=== PATIENT | female | born 1990 | race Caucasian/White ===

== ENCOUNTER 2016-11-24 11:41 | Emergency (ER) | payer SELFPAY ==
[~2016-11-24] VITALS: Ht 154.9 cm; Wt 60.0 kg
[2016-11-24 12:07] VITALS: Ht 154.9 cm; Wt 60.0 kg
== END 2016-11-24 13:17 | disposition left against medical advice (07) ==
LOC: FTE 11:41
DX: Z53.21 Procedure and treatment not carried out due to patient leaving prior to being seen by health care provider (principal)

== ENCOUNTER 2018-10-25 09:14 | Inpatient (IN) | payer OTHER ==
[~2018-10-25] VITALS: Ht 154.9 cm; Wt 69.6 kg
[~2018-10-25 09:14] MED LIST: PREN-93 PO
[2018-10-25 09:27] VITALS: Ht 154.9 cm; Wt 69.6 kg
[2018-10-25] MEDS ORDERED: MINERAL OIL LIGHT 10 ML VIAL TOP ONE (09:30)
[2018-10-25] MEDS ORDERED: OXYTOCIN 30 UNITS/LR 500 ML IV SCH ×3 (09:30)
[2018-10-25] MEDS ORDERED: BUTORPHANOL 2 MG INJ IV PRN (09:30)
[2018-10-25] MEDS ORDERED: METHYLERGONOVINE 0.2 MG INJ IM PRN (09:30)
[2018-10-25] MEDS ORDERED: IBUPROFEN 600 MG TAB PO PRN (09:30)
[2018-10-25] MEDS ORDERED: MISOPROSTOL 200 MCG TAB PR PRN (09:30)
[2018-10-25] MEDS ORDERED: LIDOCAINE 1% (MPF) 30 ML INJ INJ PRN (09:30)
[2018-10-25] MEDS ORDERED: MISOPROSTOL 50 MCG CAPSULE PO SCH (09:30)
[2018-10-25] MEDS ORDERED: OXYTOCIN 30 UNITS/LR 500 ML IV PRN (09:30)
[2018-10-25] MEDS ORDERED: CARBOPROST 250 MCG INJ IM PRN (09:30)
[2018-10-25] MEDS: LACTATED RINGER'S 1,000 ML IV SCH ×2 (10:11→17:30)
[2018-10-25] MEDS ORDERED: FER325 PO (10:18)
--- NOTE | 2018-10-25 19:49 | PREAC ---
Date/Time of Note Date/Time of Note DATE: 10/25/18 TIME: 19:48 Anesthesia Eval and Record Evaluation Time Pre-Procedure Interview DATE: 10/25/18 TIME: 19:48 Age 28 Sex female NPO: Other (na) Preoperative diagnosis labor pain Planned procedure epidural Past Medical History Past Medical History: None Surgery & Anesthesia Issues No known issue Meds Anticoagulation: No Beta Tammie within 24 hr: No Reason Beta Tammie not given: Pt. not on B-Tammie Reported Medications Ferrous Sulfate* (Ferrous Sulfate*) 325 Mg Tabec, 325 MG PO DAILY, TAB 10/25/18 Vit No.124/Iron/FA ( Vitamin Tablet) 1 Each Tablet, 1 EACH PO, TAB 10/17/18 Current Medications Lactated Ringer's 1,000 ml @ 125 mls/hr Q8H IV Last administered on 10/25/18at 17:30; Admin Dose 125 MLS/HR; Start 10/25/18 at 09:22 Butorphanol Tartrate (Stadol) 2 mg Q2H PRN IV .PAIN; Start 10/25/18 at 09:30 Lidocaine (Xylocaine 1% (Mpf)) 30 ml ONCE PRN INJ .EPISIOTOMY; Start 10/25/18 at 09:30 Oxytocin/Lactated Ringer's 500 ml @ 500 mls/hr ONCE POST IV ; Start 10/25/18 at 09:30 Oxytocin/Lactated Ringer's 500 ml @ 125 mls/hr POST IV ; Start 10/25/18 at 09:30 Ibuprofen (Motrin) 600 mg ONCE PRN PO .PAIN 1-5; Start 10/25/18 at 09:30 Oxytocin/Lactated Ringer's 500 ml @ 0 mls/hr ONCE PRN IV .VAGINAL BLEEDING; Start 10/25/18 at 09:30 Methylergonovine Maleate (Methergine) 0.2 mg ONCE PRN IM .VAGINAL BLEEDING; Start 10/25/18 at 09:30 Carboprost Tromethamine (Hemabate) 250 mcg ONCE PRN IM .VAGINAL BLEEDING; Start 10/25/18 at 09:30 Misoprostol (Cytotec) 1,000 mcg ONCE PRN VT .VAGINAL BLEEDING; Start 10/25/18 at 09:30 Misoprostol (Cytotec 50 Mcg Capsule) 50 mcg ONCE PO ; Start 10/25/18 at 09:30; Stop 10/25/18 at 23:59 Oxytocin/Lactated Ringer's 500 ml @ 0 mls/hr FOR INDUCTION IV Last administered on 10/25/18at 12:50; Admin Dose 1 MLS/HR; Start 10/25/18 at 09:30 Meds reviewed: Yes Allergies Coded Allergies: No Known Allergy (Unverified , 10/17/18) Allergies Reviewed: Yes Labs/Studies Labs Reviewed: Reviewed by anesthesiologist Result Diagram: 10/25/18 1007 Laboratory Tests 10/25/18 10:07 Blood Bank Test 10/25/18 10:07 Antibody Screen NEGATIVE Blood Type O POSITIVE Rh Immune Globulin Candidate NO test: N/A Pre-procedure Exam Airway: Adequate mouth opening, Adequate thyromental dist Mallampati: Mallampati III Teeth: Normal Lung: Normal Heart: Normal ASA Physical Status ASA physical status: 2 Emergency: None Pre-operative Attestations Prior to commencing anesthesia and surgery, the patient was re-evaluated, there was verification of: *The patient's identity *The results of appropriate recent lab work and preoperative vital signs *The above evaluation not changing prior to induction *Anesthetic plan, risk benefits, alternative and complications discussed with patient/family; questions answered; patient/family understands, accepts and wishes to proceed. ROSSY GARCIA DO Oct 25, 2018 19:48
[2018-10-25] MEDS ORDERED: FENTAnyl 2MCG/ML-ROPIV 0.2% 100 ML ONE (19:50)
[2018-10-25] MEDS ORDERED: FENTAnyl 2MCG/ML-ROPIV 0.2% 100 ML BAG EPI SCH (20:00)
[2018-10-25] MEDS ORDERED: NALOXONE (0.4 MG/ML) INJ IV PRN (20:00)
--- NOTE | 2018-10-25 20:31 | PAC ---
Date/Time of Note Date/Time of Note DATE: 10/25/18 TIME: 20:31 Post-Anesthesia Notes Post-Anesthesia Note Last documented vital signs wnl Activity: WNL Respiratory function: WNL Cardiovascular function: WNL Mental status: Baseline Pain reasonably controlled: Yes Hydration appropriate: Yes Nausea/Vomiting absent: Yes ROSSY GARCIA DO Oct 25, 2018 20:31
[2018-10-26] MEDS: LACTATED RINGER'S 1,000 ML IV SCH (02:38)
--- NOTE | 2018-10-26 03:36 | PREOPHP ---
DATE OF ADMISSION: 10/25/2018 HISTORY OF PRESENT ILLNESS: Ms. Halie Connell is a 28-year-old 2, para 1, EDC 10/20/2018 intrauterine at 40 weeks and 5 days gestational age, admitted for post-EDC induction. She denies any vaginal bleeding or discharge; however, she does report of contractions since early this morning. Her care took place at [facility]. PAST MEDICAL HISTORY: None. MEDICATIONS: vitamins. PAST SURGICAL HISTORY: None. OBSTETRICAL HISTORY: Vaginal delivery x1. GYNECOLOGIC HISTORY: Twelve, regular 3 to 4 days. Denies any sexually transmitted. Sexually active with 1 partner. SOCIAL HISTORY: Denies any smoking, drugs or alcohol. FAMILY HISTORY: None. REVIEW OF SYSTEMS: All within normal except history of present illness. PHYSICAL EXAMINATION: HEENT: Within normal. LUNGS: CTA bilateral. CARDIOVASCULAR: S1, S2, regular rhythm. ABDOMEN: Gravid, nontender. Negative CVA bilateral. EXTREMITIES: No calf tenderness. PELVIC: Vaginal exam 2 to 3 cm dilated, 70% effaced, -2 station. heart tracing category 1. T ocometer regular contractions. ASSESSMENT: Intrauterine at 40 weeks and 5 days gestational age, admitted for post-EDC aug mentation. PLAN: Pitocin as needed, pain management. Anticipate vaginal delivery. Dictated By: CHAPINCITO RODRIGES/JOSEFA Conf#: [id number] DID#: [id number]
[2018-10-26] MEDS ORDERED: MINERAL OIL LIGHT 10 ML VIAL TOP ONE (04:00)
[2018-10-26] MEDS ORDERED: OXYTOCIN 30 UNITS/LR 500 ML IV SCH (04:44)
--- NOTE | 2018-10-26 04:44 | LDN ---
Date/Time of Note Date/Time of Note DATE: 10/26/18 TIME: 04:43 Delivery Summary Weeks of Gestation 40 Placenta Delivered: Spontaneously Meconium: none Episiotomy: No Perineal laceration: 1 Laceration repair: 1st degree perineal laceration repair with 2-0 and 3-0 chromic Anesthesia type: Epidural Estimated blood loss: 150 Sponge & Needle done & correct: Yes All needle counts correct: Yes Any foreign bodies felt in the: No Infant Delivery Information Sex Sex: male Apgars 1 Minute: 9 5 Minute: 9 Suctioning Nose & mouth suctioned at christine: No Delee suction performed: No Umbilical Cord Umbilical cord with: 3 Vessels Cord presentations: no nuchal cord Cord Blood was obtained: Yes CHAPINCITO WILSON MD Oct 26, 2018 04:44
[2018-10-26] MEDS ORDERED: WITCH HAZEL/GLYCERIN PAD PR PRN (05:00)
[2018-10-26] MEDS ORDERED: CARBOPROST 250 MCG INJ IM PRN (05:00)
[2018-10-26] MEDS ORDERED: LANOLIN HPA 1 PKT TOP PRN (05:00)
[2018-10-26] MEDS ORDERED: BENZOCAINE 20% 56 ML SPRAY TOP PRN (05:00)
[2018-10-26] MEDS ORDERED: OXYTOCIN 30 UNITS/LR 500 ML IV PRN (05:00)
[2018-10-26] MEDS ORDERED: ONDANSETRON 4 MG INJ IV PRN (05:00)
[2018-10-26] MEDS ORDERED: NACL 0.9% 3 ML SYG IV SCH (05:00)
[2018-10-26] MEDS ORDERED: MAGNESIUM HYDROXIDE 30ML CUP PO PRN (05:00)
[2018-10-26] MEDS ORDERED: OXYCODONE/ASPIRIN (4.88/325) TAB PO PRN ×2 (05:00)
[2018-10-26] MEDS ORDERED: METHYLERGONOVINE 0.2 MG INJ IM PRN (05:00)
[2018-10-26] MEDS ORDERED: MISOPROSTOL 200 MCG TAB PR PRN (05:00)
[2018-10-26 06:50] VITALS: BP 119/75; PULSE 61; RESP 18
[2018-10-26] MEDS: IBUPROFEN 600 MG TAB PO SCH ×3 (07:07→17:11)
[2018-10-26 07:30] VITALS: BP 122/76; PULSE 65; RESP 18
[2018-10-26] MEDS: SENNA/DOCUSATE NA (8.6MG/50MG) TAB PO SCH ×2 (10:12→21:49)
[2018-10-26 16:00] VITALS: BP 101/65; PULSE 69; RESP 19
[2018-10-27] VITALS: BP 110/70; PULSE 68; RESP 18
[2018-10-27 04:00] VITALS: BP 121/79; PULSE 61; RESP 18
[2018-10-27] MEDS: IBUPROFEN 600 MG TAB PO SCH ×4 (06:53→17:49)
[2018-10-27 08:00] VITALS: BP 107/76; PULSE 64; RESP 18
[2018-10-27] MEDS: SENNA/DOCUSATE NA (8.6MG/50MG) TAB PO SCH ×2 (09:20→21:00)
[2018-10-27 16:30] VITALS: BP 109/75; PULSE 67; RESP 18
--- NOTE | 2018-10-27 17:07 | PD.PPDC ---
PRIVATE DUTY RN Discharge Instruction Condition [id number] Patient Condition: [id number] Fair Diet [id number] Diet: Mikak1d Resume Regular Diet Activity/Restrictions [id number] Activity: Nxoic6s Normal Activity May Shower Reawa1Se Restrictions: [id number] No Exercising No Lifting No Driving No Sexual Activity Nothing in the Vagina No [place] No Tampons, douche Follow-up Follow-up with Physician: 3, Week/Weeks Return to clinic for [id number] [facility] [employer] [facility] Instructions: [id number] Fever greater than 101 Chills Worsening abdominal pain Excessive Vaginal Bleeding More than 2 pads per hour Unable to tolerate diet [id number] OB Instructions: Cshfa4l Breast Tenderness Depression Blurried Vision Headache [id number] Surgical Instructions: Mloud2b Incisional Drainage Incisional Redness CHAPINCTIO WILSON MD Oct 27, 2018 17:07
--- NOTE | 2018-10-27 17:09 | DS ---
Date/Time of Note Date/Time of Note DATE: 10/27/18 TIME: 17:08 Obstetrical Discharge Record Final Diagnosis Final Diagnosis: Term delivered Vaginal Delivery Obstetrical Delivery: Spontaneous, Laceration, Repaired Condition on Discharge Physical Assessment Last Vitals: stable afebrile Voiding: Yes Bowel Movement: Yes Breast: Soft, non-tender, Filling Fundus: Firm Abdomen and Incision: soft nt Calf Tenderness: No Patient Condition: Fair CHAPINCITO WILSON MD Oct 27, 2018 17:09
[2018-10-27 19:45] VITALS: BP 115/75; PULSE 82; RESP 18
[2018-10-28] MEDS: IBUPROFEN 600 MG TAB PO SCH ×2 (00:24→05:48)
[2018-10-28 04:38] VITALS: BP 117/80; PULSE 74; RESP 18
[2018-10-28 08:00] VITALS: BP 123/80; PULSE 73; RESP 16
[2018-10-28] MEDS: SENNA/DOCUSATE NA (8.6MG/50MG) TAB PO SCH (09:00)
== END 2018-10-28 12:25 | disposition home or self-care (01) | DRG 807 ==
LOC: L-D 09:14 → MS1 10-26 06:24
PROVIDERS: ADMIT Obstetrics & Gynecology; ATTEND Obstetrics & Gynecology
PROC: 10E0XZZ Delivery of Products of Conception, External Approach (ICD-10-PCS; principal; 2018-10-26)
PROC: 0HQ9XZZ Repair Perineum Skin, External Approach (ICD-10-PCS; 2018-10-26)
DX: O70.0 First degree perineal laceration during delivery (principal); Z37.0 Single live birth; Z3A.40 40 weeks gestation of pregnancy
CPT/HCPCS: 62319; 76815; 85014; 85018; 85025; 85610; 85730; 86592; 86703; 86762; 86850; 86900; 86901; 87340; 87536; 99464; J2590; J3010; J7120